=== PATIENT | female | born 1965 | race Caucasian/White ===

== ENCOUNTER 2022-01-26 18:56 | Inpatient (IN) ==
[2022-01-26] MEDS ORDERED: SODIUM CHLORIDE 0.9% 1,000 ML IV STA (20:37)
[2022-01-26 21:15] LABS: Basophils % 0.3 % (0.0-0.8); Hemoglobin 12.3 GM/DL (12.0-16.0); Immature Granulocytes % 0.5 %; Immature Granulocytes Absolute 0.08 #; Lymphocytes # 2.7 10*3/uL (1.4-4.0); Mean Corpuscular HGB Conc 34.2 GM/DL (32-36); Mean Corpuscular Volume 87.6 FL (87-102); Mean Platelet Volume 9.2 FL (9.6-12.0); Monocytes # 0.7 10*3/uL (0.11-0.8); Monocytes % 4.4 % (1.7-12.7); Neutrophils % 77.8 % (38.7-73.9); Platelet Count 566 T/CUMM (130-400); Red Blood Count 4.11 MC/CUMM (3.8-5.5); Red Cell Distribution Width 14.6 % (9.3-17.3); White Blood Count 15.9 T/CUMM (4-12)
[2022-01-26 21:40] LABS: Alanine Aminotransferase 20 U/L (13-56); Alkaline Phosphatase 123 U/L (45-117); Aspartate Amino Transferase 15 U/L (0-37); Bilirubin,Total < 0.39 MG/DL (0.20-1.00); Blood Urea Nitrogen 12 MG/DL (7-18); Calcium 9.1 MG/DL (8.5-10.1); Carbon Dioxide 30 MMOL/L (21-32); Chloride 105 MMOL/L (98-107); Glucose 123 MG/DL (74-106); Osmolality,Calculated 283.1 MOS/KG (273-304); Potassium 2.7 MMOL/L (3.5-5.1); Sodium 142 MMOL/L (136-145); Total Protein 7.7 G/DL (6.4-8.2)
[2022-01-26] MEDS ORDERED: PIPERACILLIN/TAZOBACTAM 3,375 MG in SODIUM CHLORIDE 0.9% 100 ML IV STA (23:50)
[2022-01-27 00:35] LABS: Bacteria,Urine Many /HPF (Few); Mucus,Urine Moderate /LPF (Occasional); Protein,Urine Negative (Negative); RBC,Urine 7 /HPF (0-4); Squamous Epithelial Cell,Urine Occasional /HPF (0-10); Urine Appearance Slightly Cloudy (Clear); Urine Color Yellow (Yellow); Urine Specific Gravity <= 1.005 (1.001-1.035); Urine pH 6.5 (4.5-8.0)
[2022-01-27 00:36] LABS: Bilirubin,Urine Negative (Negative); Blood, Urine Large mg/dL (Negative); Glucose,Urine (UA) Negative (Negative); Ketones,Urine Negative (Negative); Nitrite,Urine Negative (Negative); Urine Urobilinogen 0.2 eU/dL (<2.0)
[2022-01-27] MEDS ORDERED: ONDANSETRON 4 MG/2 ML VIAL IV PRN (01:02)
[2022-01-27] MEDS ORDERED: ACETAMINOPHEN 325 MG TABLET PO PRN (01:02)
[2022-01-27] MEDS ORDERED: hydrALAZINE 20 MG/1 ML VIAL IV PRN (01:02)
[2022-01-27] MEDS ORDERED: NICOTINE 21 MG/24 HR PATCH TRANSDERM PRN (01:02)
[2022-01-27] MEDS ORDERED: POTASSIUM CHLORIDE 20 MEQ TABLET PO STA (01:15)
[2022-01-27] MEDS ORDERED: ALBUTEROL/IPRATROPIUM 3 ML NEB RESP TX PRN (01:25)
[2022-01-27] MEDS ORDERED: POTASSIUM CHLORIDE RIDER 10 MEQ/100 ML PREMIX IV PRN (01:53)
[2022-01-27] MEDS: LACTATED RINGERS 1,000 ML IV SCH ×2 (02:54→13:00)
[2022-01-27] MEDS ORDERED: INFLUENZA VIRUS VACCINE 0.5 ML SYRINGE IM ONE (05:00)
[2022-01-27 06:03] LABS: Basophils # 0.1 10*3/uL (0.0-0.2); Basophils % 0.5 % (0.0-0.8); Eosinophils # 0.1 10*3/uL (0.0-0.87); Eosinophils % 0.6 % (0.00-10.9); Hematocrit 34.6 VOL% (35.7-47.0); Hemoglobin 11.5 GM/DL (12.0-16.0); Immature Granulocytes % 0.4 %; Immature Granulocytes Absolute 0.06 #; Lymphocytes # 4.8 10*3/uL (1.4-4.0); Lymphocytes % 31.6 % (21.3-54.2); Mean Corpuscular HGB Conc 33.2 GM/DL (32-36); Mean Corpuscular Volume 87.6 FL (87-102); Mean Platelet Volume 9.2 FL (9.6-12.0); Monocytes # 1.1 10*3/uL (0.11-0.8); Monocytes % 7.5 % (1.7-12.7); Neutrophils % 59.4 % (38.7-73.9); Platelet Count 529 T/CUMM (130-400); Red Blood Count 3.95 MC/CUMM (3.8-5.5); Red Cell Distribution Width 14.6 % (9.3-17.3)
[2022-01-27 06:24] LABS: Calcium 9.2 MG/DL (8.5-10.1); Osmolality,Calculated 284.7 MOS/KG (273-304); Potassium 2.8 MMOL/L (3.5-5.1)
[2022-01-27 06:27] LABS: Eosinophils 3 % (0-10); Hypochromia Slight; Lymphocytes 24 % (20-55); Microcytosis Slight; Platelet Estimate Adequate; Total Cells Counted 100
[2022-01-27] MEDS ORDERED: KETOROLAC 15 MG/1 ML VIAL IV ONE (09:09)
[2022-01-27] MEDS: POTASSIUM CHLORIDE RIDER 10 MEQ/100 ML PREMIX IV SCH ×5 (12:52→15:07)
[2022-01-27] MEDS: hydroCHLOROthiazide 25 MG TABLET PO SCH (14:44)
[2022-01-27] MEDS: lisinopriL 20 MG TABLET PO SCH (14:44)
[2022-01-27] MEDS: PROPRANOLOL 20 MG TABLET PO SCH ×3 (14:44→20:15)
[2022-01-27] MEDS: ALBUTEROL 2 MG TABLET PO SCH ×3 (14:45→20:15)
[2022-01-27] MEDS: SERTRALINE 100 MG TABLET PO SCH (14:45)
[2022-01-27] MEDS: PANTOPRAZOLE 40 MG TABLET PO SCH (14:45)
[2022-01-27] MEDS: MONTELUKAST 10 MG TABLET PO SCH (14:45)
[2022-01-27] MEDS: PIPERACILLIN/TAZOBACTAM 3,375 MG in SODIUM CHLORIDE 0.9% 100 ML IV SCH ×2 (16:08→23:12)
[2022-01-27] MEDS: MORPHINE 2 MG/1 ML SYRINGE IV PRN ×2 (16:14→20:16)
[2022-01-28] MEDS: LACTATED RINGERS 1,000 ML IV SCH ×2 (02:27→10:26)
[2022-01-28] MEDS: MORPHINE 2 MG/1 ML SYRINGE IV PRN ×2 (03:23→08:15)
[2022-01-28 04:50] LABS: Basophils # 0.1 10*3/uL (0.0-0.2); Basophils % 0.5 % (0.0-0.8); Eosinophils # 0.1 10*3/uL (0.0-0.87); Hematocrit 31.3 VOL% (35.7-47.0); Hemoglobin 10.4 GM/DL (12.0-16.0); Immature Granulocytes % 0.4 %; Immature Granulocytes Absolute 0.04 #; Lymphocytes # 2.9 10*3/uL (1.4-4.0); Mean Corpuscular HGB Conc 33.2 GM/DL (32-36); Mean Corpuscular Volume 87.9 FL (87-102); Mean Platelet Volume 9.2 FL (9.6-12.0); Monocytes # 0.8 10*3/uL (0.11-0.8); Monocytes % 7.6 % (1.7-12.7); Neutrophils % 64.5 % (38.7-73.9); Platelet Count 434 T/CUMM (130-400); Red Blood Count 3.56 MC/CUMM (3.8-5.5); Red Cell Distribution Width 14.6 % (9.3-17.3)
[2022-01-28 05:09] LABS: Calcium 8.4 MG/DL (8.5-10.1); Osmolality,Calculated 282.8 MOS/KG (273-304); Potassium 2.6 MMOL/L (3.5-5.1)
[2022-01-28] MEDS: PIPERACILLIN/TAZOBACTAM 3,375 MG in SODIUM CHLORIDE 0.9% 100 ML IV SCH ×3 (06:15→23:37)
[2022-01-28] MEDS: hydroCHLOROthiazide 25 MG TABLET PO SCH (08:16)
[2022-01-28] MEDS: lisinopriL 20 MG TABLET PO SCH (08:16)
[2022-01-28] MEDS: SERTRALINE 100 MG TABLET PO SCH (08:16)
[2022-01-28] MEDS: ALBUTEROL 2 MG TABLET PO SCH ×3 (08:16→20:45)
[2022-01-28] MEDS: MONTELUKAST 10 MG TABLET PO SCH (08:17)
[2022-01-28] MEDS: PANTOPRAZOLE 40 MG TABLET PO SCH (08:17)
[2022-01-28] MEDS: PROPRANOLOL 20 MG TABLET PO SCH ×3 (08:18→20:45)
[2022-01-28] MEDS: SODIUM CHLOR 0.9% KCL 40 MEQ 40 MEQ/1,000 ML BAG IV SCH (14:03)
[2022-01-29 05:02] LABS: Basophils # 0.1 10*3/uL (0.0-0.2); Basophils % 0.5 % (0.0-0.8); Eosinophils # 0.1 10*3/uL (0.0-0.87); Eosinophils % 1.1 % (0.00-10.9); Hematocrit 32.1 VOL% (35.7-47.0); Hemoglobin 10.8 GM/DL (12.0-16.0); Immature Granulocytes % 0.4 %; Immature Granulocytes Absolute 0.04 #; Lymphocytes # 2.6 10*3/uL (1.4-4.0); Lymphocytes % 25.5 % (21.3-54.2); Mean Corpuscular HGB Conc 33.6 GM/DL (32-36); Mean Corpuscular Volume 86.5 FL (87-102); Monocytes # 0.7 10*3/uL (0.11-0.8); Neutrophils % 65.5 % (38.7-73.9); Platelet Count 423 T/CUMM (130-400); Red Blood Count 3.71 MC/CUMM (3.8-5.5); Red Cell Distribution Width 14.4 % (9.3-17.3); White Blood Count 10.3 T/CUMM (4-12)
[2022-01-29 05:30] LABS: Albumin 2.4 G/DL (3.4-5.0); Bilirubin,Total 0.4 MG/DL (0.20-1.00); Calcium 8.3 MG/DL (8.5-10.1); Osmolality,Calculated 283.8 MOS/KG (273-304); Potassium 2.7 MMOL/L (3.5-5.1); Total Protein 6.4 G/DL (6.4-8.2)
[2022-01-29] MEDS: PIPERACILLIN/TAZOBACTAM 3,375 MG in SODIUM CHLORIDE 0.9% 100 ML IV SCH (06:08)
[2022-01-29] MEDS ORDERED: POTASSIUM CHLORIDE 20 MEQ TABLET PO ONE (08:00)
[2022-01-29] MEDS: PANTOPRAZOLE 40 MG TABLET PO SCH (08:15)
[2022-01-29] MEDS: PROPRANOLOL 20 MG TABLET PO SCH (08:15)
[2022-01-29] MEDS: SERTRALINE 100 MG TABLET PO SCH (08:15)
[2022-01-29] MEDS: MONTELUKAST 10 MG TABLET PO SCH (08:16)
[2022-01-29] MEDS: SODIUM CHLOR 0.9% KCL 40 MEQ 40 MEQ/1,000 ML BAG IV SCH ×2 (08:58→10:56)
[2022-01-29] MEDS ORDERED: lisinopriL 20 MG TABLET PO SCH (09:00)
[2022-01-29 11:12] VITALS: BP 142/80
[2022-01-29] MEDS: ALBUTEROL 2 MG TABLET PO SCH (12:03)
== END 2022-01-29 13:20 | disposition home or self-care (01) | DRG 392 ==
LOC: N.ED 18:56 → N.EDINP 01-27 01:02 → SUATTDRO 01-27 01:02 → N.3E 01-27 02:25
PROVIDERS: ADMIT Family Medicine; ATTEND Internal Medicine

== ENCOUNTER 2022-03-01 05:59 | Inpatient (IN) ==
[2022-03-01] MEDS ORDERED: ERTAPENEM 1,000 MG in SODIUM CHLORIDE 0.9% 100 ML IV ONE (06:00)
[2022-03-01] MEDS ORDERED: ALVIMOPAN 12 MG CAPSULE PO ONE (06:00)
[2022-03-01] MEDS ORDERED: LACTATED RINGERS 1,000 ML IV SCH (06:00)
[2022-03-01] MEDS ORDERED: ONDANSETRON 4 MG/2 ML VIAL ONE ×2 (06:16→11:34)
[2022-03-01] MEDS ORDERED: ROCURONIUM 50 MG/5 ML VIAL IV ONE (06:16)
[2022-03-01] MEDS ORDERED: LIDOCAINE 2% 5 ML VIAL ONE (06:16)
[2022-03-01] MEDS ORDERED: propofoL 200 MG/20 ML VIAL IV ONE (06:16)
[2022-03-01] MEDS ORDERED: TISSUE ADHESIVE 1 EACH APPLICATOR TOP ONE (06:17)
[2022-03-01] MEDS ORDERED: MIDAZOLAM 2 MG/2 ML VIAL ONE (06:18)
[2022-03-01] MEDS ORDERED: SUCCINYLCHOLINE 200 MG/10 ML VIAL ONE (06:18)
[2022-03-01] MEDS ORDERED: fentaNYL 100 MCG/2 ML VIAL ONE ×2 (06:18→08:54)
[2022-03-01] MEDS ORDERED: DEXAMETHASONE 4 MG/1 ML VIAL ONE (06:47)
[2022-03-01] MEDS ORDERED: BUPIVACAINE MPF 0.25% 30 ML VIAL ONE (06:47)
[2022-03-01] MEDS ORDERED: LIDOCAINE 1% 5 ML VIAL ONE (06:48)
[2022-03-01] MEDS ORDERED: LACTATED RINGERS 1,000 ML IV ONE (07:37)
[2022-03-01] MEDS ORDERED: ePHEDrine 50 MG/ML VIAL ONE (08:01)
[2022-03-01] MEDS ORDERED: INDOCYANINE GREEN 25 MG VIAL IV ONE (09:50)
[2022-03-01] MEDS ORDERED: GLYCOPYRROLATE 0.4 MG/2 ML VIAL ONE (10:45)
[2022-03-01] MEDS ORDERED: NEOSTIGMINE 10 MG/10 ML VIAL ONE (10:46)
[2022-03-01] MEDS ORDERED: SEVOFLURANE 1 UNIT/15 MINUTE INH ONE (10:50)
[2022-03-01] MEDS ORDERED: PHENYLEPHRINE 1 MG/10 ML SYRINGE IV ONE (10:50)
[2022-03-01] MEDS ORDERED: HYDROmorphone 1 MG/1 ML SYRINGE ONE (11:33)
[2022-03-01] MEDS: HYDROmorphone 1 MG/1 ML SYRINGE IV PRN ×2 (11:35→11:40)
[2022-03-01 11:37] LABS: Mucus,Urine Occasional /LPF (Occasional); RBC,Urine 2 /HPF (0-4)
[2022-03-01 11:38] LABS: Protein,Urine Negative (Negative); Urine Appearance Clear (Clear); Urine Color Yellow (Yellow)
[2022-03-01 11:39] LABS: Bilirubin,Urine Negative (Negative); Blood, Urine Trace mg/dL (Negative); Glucose,Urine (UA) Negative (Negative); Ketones,Urine Negative (Negative); Nitrite,Urine Negative (Negative); Urine Urobilinogen 0.2 eU/dL (<2.0)
[2022-03-01] MEDS ORDERED: MEPERIDINE 25 MG/1 ML VIAL IV PRN (11:39)
[2022-03-01] MEDS ORDERED: PROMETHAZINE INJ 25 MG in SODIUM CHLORIDE 0.9% 50 ML IV PRN (11:39)
[2022-03-01] MEDS ORDERED: ONDANSETRON 4 MG/2 ML VIAL IV PRN (11:39)
[2022-03-01] MEDS ORDERED: diphenhydrAMINE 50 MG/1 ML VIAL IV PRN (11:39)
[2022-03-01] MEDS ORDERED: PROMETHAZINE 25 MG/1 ML VIAL ONE (11:41)
[2022-03-01] MEDS ORDERED: HYDROmorphone 1 MG/1 ML SYRINGE IV PRN (13:23)
[2022-03-01] MEDS: LACTATED RINGERS 1,000 ML IV SCH ×2 (13:38→20:11)
[2022-03-01] MEDS: KETOROLAC 30 MG/1 ML VIAL IV SCH ×2 (13:55→20:10)
[2022-03-01 14:04] LABS: Basophils # 0.1 10*3/uL (0.0-0.2); Basophils % 0.3 % (0.0-0.8); Hematocrit 42.6 VOL% (35.7-47.0); Hemoglobin 14.1 GM/DL (12.0-16.0); Immature Granulocytes % 0.4 %; Immature Granulocytes Absolute 0.08 #; Lymphocytes # 1.7 10*3/uL (1.4-4.0); Lymphocytes % 8.5 % (21.3-54.2); Mean Corpuscular HGB Conc 33.1 GM/DL (32-36); Mean Corpuscular Volume 88.9 FL (87-102); Mean Platelet Volume 9.5 FL (9.6-12.0); Monocytes # 0.5 10*3/uL (0.11-0.8); Monocytes % 2.6 % (1.7-12.7); Neutrophils % 88.2 % (38.7-73.9); Platelet Count 350 T/CUMM (130-400); Red Blood Count 4.79 MC/CUMM (3.8-5.5); Red Cell Distribution Width 14.6 % (9.3-17.3); White Blood Count 19.4 T/CUMM (4-12)
[2022-03-01 14:13] LABS: Calcium 8.8 MG/DL (8.5-10.1); Osmolality,Calculated 280.4 MOS/KG (273-304); Potassium 3.8 MMOL/L (3.5-5.1)
[2022-03-01] MEDS: ALBUTEROL 2 MG TABLET PO SCH ×2 (16:53→20:09)
[2022-03-01] MEDS: ALVIMOPAN 12 MG CAPSULE PO SCH (20:09)
[2022-03-02] MEDS: KETOROLAC 30 MG/1 ML VIAL IV SCH ×3 (02:12→12:23)
[2022-03-02 05:18] LABS: Basophils % 0.2 % (0.0-0.8); Eosinophils # 0.1 10*3/uL (0.0-0.87); Eosinophils % 0.4 % (0.00-10.9); Hematocrit 32.8 VOL% (35.7-47.0); Hemoglobin 10.9 GM/DL (12.0-16.0); Immature Granulocytes % 0.5 %; Immature Granulocytes Absolute 0.07 #; Lymphocytes # 3.4 10*3/uL (1.4-4.0); Lymphocytes % 26.6 % (21.3-54.2); Mean Corpuscular HGB Conc 33.2 GM/DL (32-36); Mean Corpuscular Volume 87.9 FL (87-102); Mean Platelet Volume 9.6 FL (9.6-12.0); Monocytes # 0.9 10*3/uL (0.11-0.8); Monocytes % 6.9 % (1.7-12.7); Neutrophils % 65.4 % (38.7-73.9); Platelet Count 275 T/CUMM (130-400); Red Blood Count 3.73 MC/CUMM (3.8-5.5); Red Cell Distribution Width 14.9 % (9.3-17.3); White Blood Count 12.8 T/CUMM (4-12)
[2022-03-02 05:44] LABS: Calcium 8.6 MG/DL (8.5-10.1); Osmolality,Calculated 275.7 MOS/KG (273-304); Potassium 3.4 MMOL/L (3.5-5.1)
[2022-03-02] MEDS: LACTATED RINGERS 1,000 ML IV SCH ×2 (06:18→17:32)
[2022-03-02] MEDS ORDERED: COLESEVELAM PO SCH (09:00)
[2022-03-02] MEDS ORDERED: ENOXAPARIN 40 MG/0.4 ML SYRINGE SUBCUT SCH (09:00)
[2022-03-02] MEDS ORDERED: PROPRANOLOL 60 MG PO SCH (09:00)
[2022-03-02] MEDS ORDERED: SERTRALINE 100 MG TABLET PO SCH (09:00)
[2022-03-02] MEDS ORDERED: MONTELUKAST 10 MG TABLET PO SCH (09:00)
[2022-03-02] MEDS: ALBUTEROL 2 MG TABLET PO SCH ×2 (09:03→16:16)
[2022-03-02] MEDS: ALVIMOPAN 12 MG CAPSULE PO SCH (09:03)
[2022-03-02 15:40] LABS: Hemoglobin 10.7 GM/DL (12.0-16.0)
[2022-03-02 15:58] VITALS: BP 113/74
== END 2022-03-02 18:55 | disposition home or self-care (01) | DRG 330 ==
LOC: N.OR 05:59 → N.SDSINP 06:00 → N.3E 08:07
PROVIDERS: ADMIT Surgery; ATTEND Surgery